=== PATIENT | male | born 2000 | race Two or more races ===

== ENCOUNTER 2025-04-14 11:24 | Emergency (ER) | payer MEDICAID ==
[~2025-04-14] VITALS: Ht 190.5 cm; Wt 99.8 kg
[2025-04-14 11:28] VITALS: O2SAT 99
[2025-04-14] MEDS ORDERED: LISD70CA PO (11:46)
[2025-04-14] MEDS: METHADONE HCL 10 MG TABLET PO SCH (12:30)
== END 2025-04-14 12:37 | disposition home or self-care (01) ==
LOC: ER 11:29
DX: F11.23 Opioid dependence with withdrawal (principal); M25.50 Pain in unspecified joint; R11.2 Nausea with vomiting, unspecified; F17.290 Nicotine dependence, other tobacco product, uncomplicated; F90.9 Attention-deficit hyperactivity disorder, unspecified type; Z79.899 Other long term (current) drug therapy; Z88.0 Allergy status to penicillin; Z88.7 Allergy status to serum and vaccine
CPT/HCPCS: A4606; A4663